=== PATIENT | female | born 1960 | race African-American/Black ===

== ENCOUNTER → 2018-10-05 | Day surgery (SDC) | payer BC ==
[~2018-10-05] MED LIST: HYDROmorphone 2 MG/ML VIAL IV PRN; IV RINGERS,LACTATED 1000ML 1,000 ML IV SCH; LIDOCAINE 1% PF 2 ML VIAL. ID PRN; LIDOCAINE 2% PF 5 ML VIAL. ONE; LOSA-73 PO; MORPHINE SULFATE 2 MG/ML VIAL. IV PRN; ONDANSETRON PF 4 MG/2 ML VIAL. IV PRN; PROCHLORPERAZINE 10 MG/2 ML VIAL. IV PRN; PROPOFOL 20 ML IV ONE; fentaNYL PF VIAL 100 MCG/2 ML VIAL IV PRN
[2018-10-05 08:42] VITALS: BP 117/74
--- NOTE | 2018-10-06 15:23 | HP ---
ADMIT DATE: 10/05/2018 UPDATED HISTORY AND PHYSICAL: REFERRING PHYSICIAN: Dr. Bety Mcdermott. REASON: History of colonic polyps. HISTORY OF PRESENT ILLNESS: This 57-year-old female with past medical history significant for anemia, osteoarthritis, hypertension, and colonic polyps, seen for surveillance exam. Last exam was 5 years ago, at which time tubular adenomas were encountered. Bowel habits are regular without diarrhea or constipation. There has been no melena or hematochezia. Weight and appetite are stable. She is otherwise without additional complaints. PAST MEDICAL HISTORY: Significant for hypertension, arthritis, history of colonic polyps. ALLERGIES: None. MEDICATIONS: Losartan 50 mg daily. SOCIAL HISTORY: She is a nondrinker, nonsmoker. FAMILY HISTORY: Significant for breast cancer with an aunt. Diabetes with both parents and sibling. Hypertension with both parents and several siblings and an HI with her father. PAST SURGICAL HISTORY: Significant for breast surgery. REVIEW OF SYSTEMS: As per records. PHYSICAL EXAMINATION: GENERAL: Well-nourished, well-developed female who is alert, cooperative, in no acute distress. VITAL SIGNS: Temperature is 97.8, pulse is 69, respiratory rate 16. HEENT: Normocephalic and atraumatic. Pupils and extraocular muscles are not tested. Sclerae anicteric. NECK: Supple. LUNGS: Clear. CARDIOVASCULAR: S1, S2 without S3, S4 or appreciable murmur. ABDOMEN: Soft abdomen, normal bowel sounds without appreciable hepatosplenomegaly. EXTREMITIES: Reveals no cyanosis, clubbing or edema. IMPRESSION: History of colonic polyps. Surveillance colonoscopy is recommended at this time. Risks and benefits of the procedure including risk of hemorrhage and perforation during the operation have been discussed with the patient who is willing to proceed at this time. I would like to thank Dr. Mcdermott for allowing us to consult and participate in this patient's care. JE HEATH MD DR: FAREED/kendrick JOB#: [id number] / [id number] Bety Morin MD
== END | disposition home or self-care (01) ==
LOC: SURG 07:26
PROVIDERS: ATTEND Internal Medicine Gastroenterology
DX: Z12.11 Encounter for screening for malignant neoplasm of colon (principal); K57.30 Diverticulosis of large intestine without perforation or abscess without bleeding; K64.0 First degree hemorrhoids; K63.89 Other specified diseases of intestine; I10 Essential (primary) hypertension; D64.9 Anemia, unspecified; M19.90 Unspecified osteoarthritis, unspecified site; Z86.010 Personal history of colon polyps; Z79.899 Other long term (current) drug therapy; Z83.3 Family history of diabetes mellitus; Z82.49 Family history of ischemic heart disease and other diseases of the circulatory system; Z98.890 Other specified postprocedural states
CPT/HCPCS: 45378; J2001; J2704

== ENCOUNTER → 2019-11-15 | Outpatient (CLI) | payer BC ==
[2018-10-05 08:42] VITALS: BP 117/74
[~2019-11-15] MED LIST changes: -HYDROmorphone 2 MG/ML VIAL IV PRN; -IV RINGERS,LACTATED 1000ML 1,000 ML IV SCH; -LIDOCAINE 1% PF 2 ML VIAL. ID PRN; -LIDOCAINE 2% PF 5 ML VIAL. ONE; -MORPHINE SULFATE 2 MG/ML VIAL. IV PRN; -ONDANSETRON PF 4 MG/2 ML VIAL. IV PRN; -PROCHLORPERAZINE 10 MG/2 ML VIAL. IV PRN; -PROPOFOL 20 ML IV ONE; -fentaNYL PF VIAL 100 MCG/2 ML VIAL IV PRN
--- NOTE | 2019-11-15 12:26 | RAD ---
KNEE LEFT 3V DATE: 11/15/2019 12:00 AM INDICATION: Knee pain COMPARISON: None. FINDINGS: Bones: There is no evidence of acute fracture or dislocation. Joints: Moderate to severe degenerative changes of the medial compartment. Mild degenerative changes of the lateral and patellofemoral compartment. There is no joint effusion. Miscellaneous: None. IMPRESSION: Tricompartmental osteoarthritis, worst and moderate to severe in the medial compartment. Degenerative changes are similar to the prior exam. Electronically signed by: Henok Casey MD (11/15/2019 12:23 PM) [id number]
--- NOTE | 2019-11-15 12:26 | RAD ---
HIP RIGHT 2 VIEW DATE: 11/15/2019 12:00 AM INDICATION: Hip pain COMPARISON: None. FINDINGS: Bones: There is no evidence of acute fracture or dislocation. Joints: Moderate to severe degenerative changes of the hip with subchondral sclerosis and osteophyte formation Miscellaneous: Pelvic phleboliths IMPRESSION: Moderate to severe degenerative changes of the right hip. Degenerative changes are similar to the prior exam. Electronically signed by: Henok Casey MD (11/15/2019 12:24 PM) [id number]
== END | disposition home or self-care (01) ==
LOC: RAD 11:27
PROVIDERS: ATTEND Family Medicine
DX: M17.12 Unilateral primary osteoarthritis, left knee (principal); M16.11 Unilateral primary osteoarthritis, right hip; M25.751 Osteophyte, right hip; I87.8 Other specified disorders of veins
CPT/HCPCS: 73502; 73562

== ENCOUNTER → 2020-01-14 | Outpatient (CLI) | payer BC ==
[2018-10-05 08:42] VITALS: BP 117/74
[~2020-01-14] MED LIST changes: +ALBU2.5V8 IH; +BUPIVACAINE MPF 0.5% 10 ML VIAL for KCIC. IM ONE; +CONTRAST GIVEN. MC PRN; +FLUT1DIS IH; +IOHEXOL 300 MG/ML 50 ML VIAL. INT ART ONE; +LIDOCAINE 1% Multi-Dose 20 ML VIAL. ID ONE; +SPIR25TA5 PO; +methylPREDNISolone ACETATE 40 MG/ML VIAL. INT ART ONE
--- NOTE | 2020-01-14 16:31 | KCIC ---
EXAM: FLUOROSCPY-GUIDED HIP ARTHROGRAM History: Right hip pain, arthritis COMPARISON: None available TECHNIQUE: Consent: A written, informed consent was obtained from the patient prior to the procedure. Appropriate time out procedures were performed. The skin was prepped and draped in the usual fashion under aseptic precautions. Dilute 1% lidocaine was used for local anesthesia. Under fluoroscopic guidance a 22 gauge long spinal needle was used to access the hip joint. A mixture of 4 mL of Omnipaque 300, 4 mL of bupivacaine, 4 mL of lidocaine, 80 mg Depo-Medrol. The patient was transferred to the MRI suite. 28 seconds of total fluoroscopy time was utilized. No immediate complications. IMPRESSION: Technically successful right hip arthrogram. Electronically signed by: Red Hardwick MD (01/14/2020 4:28 PM) [id number]
== END | disposition home or self-care (01) ==
LOC: KCIC 14:23
PROVIDERS: ATTEND Orthopaedic Surgery Sports Medicine
DX: M13.851 Other specified arthritis, right hip (principal); Z79.899 Other long term (current) drug therapy
CPT/HCPCS: 20610; 77002; J1030; J3490; Q9967

== ENCOUNTER 2020-01-21 06:52 | Observation (INO) | payer BC ==
[2020-01-21] VITALS (10 sets, daily range): BP systolic 83–108; BP diastolic 44–60
[~2020-01-21] VITALS: Ht 160 cm; Wt 75.1 kg
[~2020-01-21 06:52] MED LIST changes: -BUPIVACAINE MPF 0.5% 10 ML VIAL for KCIC. IM ONE; -CONTRAST GIVEN. MC PRN; -IOHEXOL 300 MG/ML 50 ML VIAL. INT ART ONE; -LIDOCAINE 1% Multi-Dose 20 ML VIAL. ID ONE; -methylPREDNISolone ACETATE 40 MG/ML VIAL. INT ART ONE
[2020-01-21] MEDS ORDERED: IV NORMAL SALINE 1000ML BAG 1,000 ML IV SCH ×2 (06:59→09:45)
[2020-01-21] MEDS ORDERED: ONDANSETRON PF 4 MG/2 ML VIAL. IVP ONE (07:00)
--- NOTE | 2020-01-21 07:01 | PHYS DOC ---
Past Medical History Past Medical History: Hypertension Drug Use: None General Adult EDM: Chief Complaint: ABDOMINAL PAIN HPI: HPI: Patient is a 59 year old female who presents with a chief complaint of abdominal cramping and nausea and vomiting. Symptoms have been going on for 2 days. Patient states she is having some epigastric pain that radiates to the lower abdomen is described as cramping moderate in nature and worse with palpation. Patient has not had a bowel movement a couple days. Denies diarrhea. She has had about 6 episodes of emesis. Patient denies any fevers chills or cough. Patient had a hip injection 1 week ago and her joint pain is improved. Review of Systems: Review of Systems: Constitutional: Denies fever or chills. [] Eyes: Denies change in visual acuity. [] HENT: Denies nasal congestion or sore throat. [] Respiratory: Denies cough or shortness of breath. [] Cardiovascular: Denies chest pain or edema. [] GI: complains of abd pain, nausea and vomiting, denies diarrhea : Denies dysuria. [] Musculoskeletal: Denies back pain or joint pain. [] Integument: Denies rash. [] Neurologic: Denies headache, focal weakness or sensory changes. [] Endocrine: Denies polyuria or polydipsia. [] Lymphatic: Denies swollen glands. [] Psychiatric: Denies depression or anxiety. [] Heart Score: Risk Factors: Risk Factors: DM, Current or recent (<one month) smoker, HTN, HLP, family history of CAD, obesity. Risk Scores: Score 0 - 3: 2.5% MACE over next 6 weeks - Discharge Home Score 4 - 6: 20.3% MACE over next 6 weeks - Admit for Clinical Observation Score 7 - 10: 72.7% MACE over next 6 weeks - Early Invasive Strategies Allergies: Allergies: Allergies Coded Allergies Type Severity Reaction Last Updated Verified No Known Drug Allergies 10/05/18 No Physical Exam: PE: Constitutional: Well developed, well nourished, no acute distress, non-toxic appearance. [] HENT: Normocephalic, atraumatic, bilateral external ears normal, no trismus nose normal. [] Eyes: PERRLA, EOMI, conjunctiva normal, no discharge. [] Neck: Normal range of motion, no tenderness, supple, no stridor. [] Cardiovascular:Heart rate regular rhythm, no murmur [] Lungs & Thorax: No respiratory distress Abdomen: , Soft with diffuse tenderness to palpation worse in the epigastric. No pulsatile masses Skin: Warm, dry, no erythema, no rash. [] Back: No tenderness, no CVA tenderness. [] Extremities: No tenderness, no cyanosis, no clubbing, ROM intact, no edema. [] Neurologic: Alert and oriented X 3, normal motor function, normal sensory function, no focal deficits noted. [] Psychologic: Affect normal, judgement normal, mood normal. [] Current Patient Data: Labs: Laboratory Tests Test 01/21/20 07:07 01/21/20 07:25 01/21/20 07:57 Urine Collection Type Unknown Urine Color Yellow Urine Clarity Clear Urine pH 7.0 Urine Specific [place] 1.020 Urine Protein 30 mg/dL Urine Glucose (UA) Negative mg/dL Urine Ketones (Stick) 15 mg/dL Urine Blood Negative Urine Nitrite Negative Urine Bilirubin Small Urine Urobilinogen Dipstick 1.0 mg/dL Urine Leukocyte Esterase Moderate Urine RBC 0 /HPF Urine WBC 5-10 /HPF Urine Squamous Epithelial Cells Occ /LPF Urine Amorphous Sediment Present /HPF Urine Bacteria Few /HPF Urine Hyaline Casts Occasional /HPF Urine Mucus Marked /LPF White Blood Count 19.7 x10^3/uL Red Blood Count 4.64 x10^6/uL Hemoglobin 12.8 g/dL Hematocrit 38.3 % Mean Corpuscular Volume 83 fL Mean Corpuscular Hemoglobin 28 pg Mean Corpuscular Hemoglobin Concent 34 g/dL Red Cell Distribution Width 13.6 % Platelet Count 281 x10^3/uL Neutrophils (%) (Auto) 90 % Lymphocytes (%) (Auto) 7 % Monocytes (%) (Auto) 2 % Eosinophils (%) (Auto) 0 % Basophils (%) (Auto) 1 % Neutrophils # (Auto) 17.7 x10^3/uL Lymphocytes # (Auto) 1.4 x10^3/uL Monocytes # (Auto) 0.5 x10^3/uL Eosinophils # (Auto) 0.0 x10^3/uL Basophils # (Auto) 0.1 x10^3/uL Segmented Neutrophils % 94 % Lymphocytes % 4 % Monocytes % 2 % Platelet Estimate Adequate Sodium Level 130 mmol/L Potassium Level 4.3 mmol/L Chloride Level 98 mmol/L Carbon Dioxide Level 24 mmol/L Anion Gap 8 Blood Urea Nitrogen 25 mg/dL Creatinine 1.4 mg/dL Estimated GFR (Cockcroft-Gault) 46.7 BUN/Creatinine Ratio 18 Glucose Level 120 mg/dL Calcium Level 9.3 mg/dL Total Bilirubin 0.5 mg/dL Aspartate Amino Transf (AST/SGOT) 12 U/L Alanine Aminotransferase (ALT/SGPT) 21 U/L Alkaline Phosphatase 82 U/L Total Protein 7.6 g/dL Albumin 3.4 g/dL Albumin/Globulin Ratio 0.8 Lipase 66 U/L Current Medications Medications (Trade) Dose Ordered Sig/Juan Route PRN Reason Start Time Stop Time Status Last Admin Dose Admin Sodium Chloride 1,000 ml @ 1,000 mls/hr Q1H IV 01/21/20 06:59 01/21/20 07:58 DC 01/21/20 07:41 Ondansetron HCl (Zofran) 4 mg 1X ONCE IVP 01/21/20 07:00 01/21/20 07:02 DC 01/21/20 07:42 Dicyclomine HCl (Bentyl) 20 mg 1X ONCE IM 01/21/20 07:15 01/21/20 07:17 DC 01/21/20 07:45 Iohexol (Omnipaque 300 Mg/ml) 75 ml 1X ONCE IV 01/21/20 07:45 01/21/20 07:46 DC 01/21/20 07:45 Info (CONTRAST GIVEN -- Rx MONITORING) 1 each PRN DAILY PRN MC SEE COMMENTS 01/21/20 07:45 01/23/20 07:44 Piperacillin Sod/ Tazobactam Sod 3.375 gm/Sodium Chloride 50 ml @ 100 mls/hr 1X ONCE IV 01/21/20 09:30 01/21/20 09:59 Vital Signs: Vital Signs Date Time Temp Pulse Resp B/P (MAP) Pulse Ox O2 Delivery O2 Flow Rate FiO2 01/21/20 07:10 98.7 80 18 117/65 (82) 98 Room Air 98.7 EKG: EKG: [] Radiology/Procedures: Radiology/Procedures: [][facility] [address] [place] [address] IMAGING REPORT Signed PATIENT: KULDEEP VEGA ACCOUNT: [id number] : 1960 LOCATION: ER AGE: 59 SEX: F EXAM STATUS: REG ER ORD. PHYSICIAN: JE PHILLIPS MD REASON: abd pain, n/v PROCEDURE: CT ABD PELV W/ IV CONTRST ONLY CT ABD PELV W/ IV CONTRST ONLY History: abd pain, n/v Comparison: None. Technique: After administration of intravenous contrast, helical CT of the abdomen and pelvis was performed from the lung bases through the ischial tuberosities. Coronal and sagittal reconstructions were obtained. 60 mL of Omnipaque 300 were used. One or more of the following dose reduction techniques were utilized: Automated exposure control (AEC), Adjustment of mA and/or kV according to patient size, Use of iterative reconstruction technique such as ASiR, CT scan done according to ALARA and image gently/image wisely Abdomen Findings: The visualized lung bases are clear. The liver, gallbladder, pancreas, and bilateral adrenal glands are normal. Indeterminate splenic hypodensity measuring 1 cm, probably a cyst or hemangioma. Symmetric renal enhancement. There is no focal renal mass. There is no hydronephrosis. The visualized loops of small bowel are normal. Mild colonic diverticulosis There is no evidence of bowel obstruction. Enlarged appendix measuring 1.1 cm with periappendiceal inflammation. No free air or organized fluid collection. There is no free fluid. There is no mesenteric or retroperitoneal adenopathy. The abdominal aorta is normal in caliber. Pelvis Findings: Urinary bladder is partially distended. Myomatous uterus. No pelvic free fluid. There is no pelvic or inguinal adenopathy. Degenerative changes of the spine. IMPRESSION: 1. Enlarged appendix with periappendiceal inflammation concerning for acute appendicitis. No free air or organized fluid collection. 2. Myomatous uterus. Electronically signed by: Michelle Casey MD (01/21/2020 9:16 AM) [id number] DICTATED and SIGNED BY: MICHELLE CASEY MD DATE: 01/21/20 0916 Course & Med Decision Making: Course & Med Decision Making Pertinent Labs and Imaging studies reviewed. (See chart for details) [] 59-year-old female presents with abdominal pain. Patient started generalized and epigastric area now more in the lower abdomen. CT shows acute appendicitis. Patient given IV antibiotics and will be admitted to the hospitalist. General surgery will be consulted. Patient admitted to with a consult placed with Dr. Marquis Campbell Disclaimer: Adrian Disclaimer: This electronic medical record was generated, in whole or in part, using a voice recognition dictation system. Departure Departure Impression: Primary Impression: Acute appendicitis Additional Impression: Acute abdominal pain Disposition: ADMITTED INPATIENT Admitting Physician: RUDY Toribio) Condition: STABLE Referrals: GENEVA KELLEY MD (PCP) Justicifation of Admission Dx: Justifications for Admission: Justification of Admission Dx: Yes JE PHILLIPS MD Jan 21, 2020 07:01
[2020-01-21] MEDS ORDERED: DICYCLOMINE 20 MG/2 ML VIAL. IM ONE (07:15)
[2020-01-21 07:16] LABS: BILIRUBIN,URINE SMALL (NEG); CLARITY,URINE CLEAR; COLOR,URINE YELLOW; NITRITE,URINE NEGATIVE (NEG); PROTEIN,URINE 30 mg/dL (NEG-TRACE)
[2020-01-21 07:30] LABS: RBC,URINE 0 /HPF (0-2)
[2020-01-21 07:31] LABS: AMORPHOUS SEDIMENT,UR PRESENT /HPF; BACTERIA,URINE FEW /HPF (0-FEW); HYALINE CASTS, URINE OCCASIONAL /HPF; SQUAMOUS EPITHELIAL CELL,UR OCC /LPF
[2020-01-21 07:35] LABS: BASO # 0.1 x10^3/uL (0.0-0.2); BASO % 1 % (0-3); EOS % 0 % (0-3); HEMATOCRIT 38.3 % (36.0-47.0); HEMOGLOBIN 12.8 g/dL (12.0-15.5); LYMPH # 1.4 x10^3/uL (1.0-4.8); LYMPH % 7 % (24-48); MEAN CORPUSCULAR HEMOGLOBIN 28 pg (25-35); MEAN CORPUSCULAR HGB CONC 34 g/dL (31-37); MEAN CORPUSCULAR VOLUME 83 fL (79-100); MONO # 0.5 x10^3/uL (0.0-1.1); MONO % 2 % (0-9); NEUT # 17.7 x10^3/uL (1.8-7.7); NEUT % 90 % (31-73); PLATELET COUNT 281 x10^3/uL (140-400); RED BLOOD COUNT 4.64 x10^6/uL (3.50-5.40); RED CELL DISTRIBUTION WIDTH 13.6 % (11.5-14.5); WHITE BLOOD COUNT 19.7 x10^3/uL (4.0-11.0)
[2020-01-21] MEDS ORDERED: IOHEXOL 300 MG/ML 100ML VIAL. IV ONE (07:45)
[2020-01-21] MEDS ORDERED: CONTRAST GIVEN. MC PRN (07:45)
[2020-01-21 08:09] LABS: CALCIUM 9.3 mg/dL (8.5-10.1); CREATININE 1.4 mg/dL (0.6-1.0); GFR 46.7; POTASSIUM 4.3 mmol/L (3.5-5.1)
[2020-01-21 08:15] LABS: ALBUMIN 3.4 g/dL (3.4-5.0); ALBUMIN/GLOBULIN RATIO 0.8 (1.0-1.7); TOTAL BILIRUBIN 0.5 mg/dL (0.2-1.0); TOTAL PROTEIN 7.6 g/dL (6.4-8.2)
[2020-01-21 08:20] LABS: % LYMPHS 4 % (24-48); % MONOS 2 % (0-10); % SEGS 94 % (35-66)
[2020-01-21 08:21] LABS: PLT ESTIMATE ADEQUATE (ADEQUATE)
--- NOTE | 2020-01-21 09:19 | RAD ---
CT ABD PELV W/ IV CONTRST ONLY History: abd pain, n/v Comparison: None. Technique: After administration of intravenous contrast, helical CT of the abdomen and pelvis was performed from the lung bases through the ischial tuberosities. Coronal and sagittal reconstructions were obtained. 60 mL of Omnipaque 300 were used. One or more of the following dose reduction techniques were utilized: Automated exposure control (AEC), Adjustment of mA and/or kV according to patient size, Use of iterative reconstruction technique such as ASiR, CT scan done according to ALARA and image gently/image wisely Abdomen Findings: The visualized lung bases are clear. The liver, gallbladder, pancreas, and bilateral adrenal glands are normal. Indeterminate splenic hypodensity measuring 1 cm, probably a cyst or hemangioma. Symmetric renal enhancement. There is no focal renal mass. There is no hydronephrosis. The visualized loops of small bowel are normal. Mild colonic diverticulosis There is no evidence of bowel obstruction. Enlarged appendix measuring 1.1 cm with periappendiceal inflammation. No free air or organized fluid collection. There is no free fluid. There is no mesenteric or retroperitoneal adenopathy. The abdominal aorta is normal in caliber. Pelvis Findings: Urinary bladder is partially distended. Myomatous uterus. No pelvic free fluid. There is no pelvic or inguinal adenopathy. Degenerative changes of the spine. IMPRESSION: 1. Enlarged appendix with periappendiceal inflammation concerning for acute appendicitis. No free air or organized fluid collection. 2. Myomatous uterus. Electronically signed by: Henok Casey MD (01/21/2020 9:16 AM) [id number]
[2020-01-21] MEDS ORDERED: PIPERACILLIN/TAZOBACTAM 3.375 GM in IV NORMAL SALINE 50ML 50 ML IV ONE (09:30)
[2020-01-21] MEDS ORDERED: ONDANSETRON PF 4 MG/2 ML VIAL. IV PRN ×2 (09:45→10:00)
[2020-01-21] MEDS ORDERED: MORPHINE SULFATE 2 MG/ML VIAL. IV PRN ×2 (09:45→12:45)
[2020-01-21] MEDS: IV NORMAL SALINE 1000ML BAG 1,000 ML IV SCH ×3 (09:53→14:45)
[2020-01-21] MEDS ORDERED: ACETAMINOPHEN 325 MG TABLET. PO PRN (10:00)
[2020-01-21] MEDS ORDERED: diphenhydrAMINE 50 MG/ML VIAL IVP PRN (10:00)
[2020-01-21] MEDS ORDERED: ALBUTEROL SULFATE 2.5 MG/3 ML NEBU. NEB PRN (10:00)
[2020-01-21] MEDS ORDERED: ACETAMINOPHEN 650 MG SUPP.RECT. PR PRN (10:00)
[2020-01-21] MEDS ORDERED: DOCUSATE SODIUM 100 MG CAPSULE. PO PRN (10:00)
[2020-01-21] MEDS ORDERED: LORazepam 0.5 MG TABLET PO PRN (10:00)
[2020-01-21] MEDS ORDERED: ZOLPIDEM 5 MG TABLET. PO PRN (10:00)
[2020-01-21] MEDS ORDERED: guaiFENesin ORAL 200 MG/10 ML LIQUID. PO PRN (10:00)
[2020-01-21] MEDS: SPIRONOLACTONE 25 MG TABLET PO SCH (10:57)
[2020-01-21] MEDS: LOSARTAN POTASSIUM 50 MG TABLET. PO SCH (10:57)
[2020-01-21] MEDS: ALBUTEROL SULFATE 2.5 MG/3 ML NEBU. NEB SCH ×2 (11:11→19:55)
[2020-01-21] MEDS ORDERED: BUPIVACAINE-EPI 0.25%-1:200000 MPF 30 ML VIAL. ONE (12:32)
[2020-01-21] MEDS ORDERED: IV RINGERS,LACTATED 1000ML 1,000 ML IV SCH (12:39)
[2020-01-21] MEDS ORDERED: PROPOFOL 10 MG/ML (20ML) VIAL. IV ONE (12:43)
[2020-01-21] MEDS ORDERED: DEXAMETHASONE SOD PHOS 4 MG/ML VIAL ONE ×2 (12:43→13:22)
[2020-01-21] MEDS ORDERED: LIDOCAINE 2% PF 5 ML VIAL. ONE (12:43)
[2020-01-21] MEDS ORDERED: SUCCINYLCHOLINE 200 MG/10 ML VIAL. ONE (12:44)
[2020-01-21] MEDS ORDERED: ROCURONIUM 50 MG/5 ML VIAL. ONE (12:44)
[2020-01-21] MEDS ORDERED: fentaNYL PF VIAL 100 MCG/2 ML VIAL IV PRN (12:45)
[2020-01-21] MEDS ORDERED: HYDROmorphone 2 MG/ML VIAL IV PRN (12:45)
[2020-01-21] MEDS ORDERED: PROCHLORPERAZINE 10 MG/2 ML VIAL. IV PRN (12:45)
--- NOTE | 2020-01-21 12:57 | PDOC2 ---
CONSULT Date of Consult Date of Consult DATE: 01/21/20 TIME: 12:54 Reason for Consult Reason for Consult: Nausea vomiting abdominal pain Referring Physician Referring Physician: Isabel Identification/Chief Complaint Chief Complaint Nausea vomit abdominal pain Source Source: Chart review, Patient History of Present Illness Reason for Visit: 59-year-old female with 2-day history of right lower quadrant abdominal pain nausea vomiting. Came to the emergency room for further evaluation found to have elevated white count and a CT scan showing signs consistent with acute appendicitis with dilated appendix and periappendiceal inflammation no evidence of abscess Past Medical History Cardiovascular: HTN Pulmonary: No pertinent hx GI: No pertinent hx Heme/Onc: No pertinent hx Hepatobiliary: No pertinent hx Psych: No pertinent hx Rheumatologic: No pertinent hx Infectious disease: No pertinent hx ENT: No pertinent hx Renal/: No pertinent hx Endocrine: No pertinent hx Dermatology: No pertinent hx Past Surgical History Past Surgical History: No pertinent history Current Problem List Problem List Problems Medical Problems: (1) Acute abdominal pain Status: Acute (2) Acute appendicitis Status: Acute (3) Generalized abdominal pain affecting Status: Acute Current Medications Current Medications Current Medications Sodium Chloride 1,000 ml @ 1,000 mls/hr Q1H IV Last administered on 01/21/20at 07:41; Start 01/21/20 at 06:59; Stop 01/21/20 at 07:58; Status DC Ondansetron HCl (Zofran) 4 mg 1X ONCE IVP Last administered on 01/21/20at 07:42; Start 01/21/20 at 07:00; Stop 01/21/20 at 07:02; Status DC Dicyclomine HCl (Bentyl) 20 mg 1X ONCE IM Last administered on 01/21/20at 07:45; Start 01/21/20 at 07:15; Stop 01/21/20 at 07:17; Status DC Iohexol (Omnipaque 300 Mg/ml) 75 ml 1X ONCE IV Last administered on 01/21/20at 07:45; Start 01/21/20 at 07:45; Stop 01/21/20 at 07:46; Status DC Info (CONTRAST GIVEN -- Rx MONITORING) 1 each PRN DAILY PRN MC SEE COMMENTS; Start 01/21/20 at 07:45; Stop 01/23/20 at 07:44 Piperacillin Sod/ Tazobactam Sod 3.375 gm/Sodium Chloride 50 ml @ 100 mls/hr 1X ONCE IV Last administered on 01/21/20at 10:05; Start 01/21/20 at 09:30; Stop 01/21/20 at 09:59; Status DC Ondansetron HCl (Zofran) 4 mg PRN Q8HRS PRN IV NAUSEA/VOMITING; Start 01/21/20 at 09:45; Stop 01/22/20 at 09:44 Morphine Sulfate (Morphine Sulfate) 2 mg PRN Q2HR PRN IV PAIN Last administered on 01/21/20at 10:01; Start 01/21/20 at 09:45; Stop 01/22/20 at 09:44 Sodium Chloride 1,000 ml @ 125 mls/hr Q8H IV Last administered on 01/21/20at 10:00; Start 01/21/20 at 09:45; Stop 01/21/20 at 10:27; Status DC Sodium Chloride 1,000 ml @ 100 mls/hr Q10H IV Last administered on 01/21/20at 11:06; Start 01/21/20 at 09:53 Ondansetron HCl (Zofran) 4 mg PRN Q4HRS PRN IV NAUSEA/VOMITING; Start 01/21/20 at 10:00 Zolpidem Tartrate (Ambien) 5 mg PRN QHS PRN PO INSOMNIA; Start 01/21/20 at 10:00 Acetaminophen (Tylenol) 650 mg PRN Q4HRS PRN PO TEMP OVER 100.4F OR MILD PAIN; Start 01/21/20 at 10:00 Acetaminophen (Tylenol Supp) 650 mg PRN Q4HRS PRN IN TEMP OVER 100.4F OR MILD PAIN; Start 01/21/20 at 10:00 Diphenhydramine HCl (Benadryl) 25 mg PRN Q4HRS PRN IVP ITCHING; Start 01/21/20 at 10:00 Docusate Sodium (Colace) 100 mg PRN BID PRN PO HARD STOOLS; Start 01/21/20 at 10:00 Albuterol Sulfate (Ventolin Neb Soln) 2.5 mg PRN Q4HRS PRN NEB SHORTNESS OF BREATH; Start 01/21/20 at 10:00 Guaifenesin (Robitussin) 200 mg PRN Q4HRS PRN PO COUGH; Start 01/21/20 at 10:00 Lorazepam (Ativan) 0.5 mg PRN Q4HRS PRN PO ANXIETY / AGITATION; Start 01/21/20 at 10:00 Losartan Potassium (Cozaar) 50 mg DAILY PO ; Start 01/21/20 at 11:00 Spironolactone (Aldactone) 25 mg DAILY PO ; Start 01/21/20 at 11:00 Non-Formulary Medication (Fluticasone/ Salmeterol (Advair 100-50 Diskus)) 1 puff BID IH ; Start 01/21/20 at 21:00; Status UNV Albuterol Sulfate (Ventolin Neb Soln) 2.5 mg Q6HRS NEB Last administered on 01/21/20at 11:11; Start 01/21/20 at 12:00 Budesonide (Pulmicort) 0.5 mg RTBID NEB ; Start 01/21/20 at 20:00 Bupivacaine HCl/ Epinephrine Bitart (Sensorcaine-Epi 0.25%-1:717238 Mpf) 30 ml STK-MED ONCE .ROUTE ; Start 01/21/20 at 12:32; Stop 01/21/20 at 12:33; Status DC Fentanyl Citrate (Fentanyl 2ml Vial) 50 mcg PRN Q5MIN PRN IV MODERATE TO SEVERE PAIN; Start 01/21/20 at 12:45; Stop 01/21/20 at 20:00 Morphine Sulfate (Morphine Sulfate) 1 mg PRN Q10MIN PRN IV SEVERE PAIN 7-10; Start 01/21/20 at 12:45; Stop 01/21/20 at 20:00 Ringer's Solution 1,000 ml @ 30 mls/hr Q24H IV ; Start 01/21/20 at 12:39; Stop 01/22/20 at 00:38 Hydromorphone HCl (Dilaudid) 0.5 mg PRN Q10MIN PRN IV SEV PAIN, Second choice; Start 01/21/20 at 12:45; Stop 01/22/20 at 12:44; Status UNV Prochlorperazine Edisylate (Compazine) 5 mg PACU PRN PRN IV NAUSEA, MRX1; Start 01/21/20 at 12:45; Stop 7/29/20 at 12:44; Status UNV Propofol (Diprivan) 200 mg STK-MED ONCE IV ; Start 01/21/20 at 12:43; Stop 01/21/20 at 12:43; Status DC Lidocaine HCl (Lidocaine Pf 2% Vial) 5 ml STK-MED ONCE .ROUTE ; Start 01/21/20 at 12:43; Stop 01/21/20 at 12:44; Status DC Dexamethasone Sodium Phosphate (Decadron) 4 mg STK-MED ONCE .ROUTE ; Start 01/21/20 at 12:43; Stop 01/21/20 at 12:44; Status DC Rocuronium [place] (Zemuron) 50 mg STK-MED ONCE .ROUTE ; Start 01/21/20 at 12:44; Stop 01/21/20 at 12:44; Status DC Succinylcholine Chloride (Anectine) 200 mg STK-MED ONCE .ROUTE ; Start 01/21/20 at 12:44; Stop 01/21/20 at 12:44; Status DC Active Scripts Active Reported Advair 100-50 Diskus (Fluticasone/Salmeterol) 1 Each Disk.w.dev 1 Puff IH BID Spironolactone 25 Mg Tablet 1 Tab PO DAILY Proair Hfa Inhaler (Albuterol Sulfate) 8.5 Gm Hfa.aer.ad 2 Puff IH PRN Q4-6HRS PRN 21 Days Losartan Potassium 50 Mg Tablet 50 Mg PO DAILY Allergies Allergies: Coded Allergies: lisinopril (Verified Allergy, Severe, Swelling, 01/21/20) ROS Gastrointestinal: Yes Nausea, Yes Vomiting, Yes Abdominal Pain Physical Exam General: Alert, Oriented X3, Cooperative, mild distress HEENT: Atraumatic Lungs: Clear to auscultation, Normal air movement Heart: Regular rate, No murmurs Abdomen: Normal bowel sounds, Soft, Other (Tender to palpation right lower quadrant) Extremities: No edema Skin: No significant lesion Neuro: Normal speech Psych/Mental Status: Mental status NL Vitals VITALS Vital Signs Date Time Temp Pulse Resp B/P (MAP) Pulse Ox O2 Delivery O2 Flow Rate FiO2 01/21/20 11:13 98 Room Air 01/21/20 10:39 92 118/64 (82) 01/21/20 07:10 98.7 18 98.7 Labs Labs Laboratory Tests Test 01/21/20 07:07 01/21/20 07:25 01/21/20 07:57 01/21/20 10:12 Urine Collection Type Unknown Urine Color Yellow Urine Clarity Clear Urine pH 7.0 (<5.0-8.0) Urine Specific [place] 1.020 (1.000-1.030) Urine Protein 30 mg/dL (NEG-TRACE) Urine Glucose (UA) Negative mg/dL (NEG) Urine Ketones (Stick) 15 mg/dL (NEG) Urine Blood Negative (NEG) Urine Nitrite Negative (NEG) Urine Bilirubin Small (NEG) Urine Urobilinogen Dipstick 1.0 mg/dL (0.2 mg/dL) Urine Leukocyte Esterase Moderate (NEG) Urine RBC 0 /HPF (0-2) Urine WBC 5-10 /HPF (0-4) Urine Squamous Epithelial Cells Occ /LPF Urine Amorphous Sediment Present /HPF Urine Bacteria Few /HPF (0-FEW) Urine Hyaline Casts Occasional /HPF Urine Mucus Marked /LPF White Blood Count 19.7 x10^3/uL (4.0-11.0) Red Blood Count 4.64 x10^6/uL (3.50-5.40) Hemoglobin 12.8 g/dL (12.0-15.5) Hematocrit 38.3 % (36.0-47.0) Mean Corpuscular Volume 83 fL (79-100) Mean Corpuscular Hemoglobin 28 pg (25-35) Mean Corpuscular Hemoglobin Concent 34 g/dL (31-37) Red Cell Distribution Width 13.6 % (11.5-14.5) Platelet Count 281 x10^3/uL (140-400) Neutrophils (%) (Auto) 90 % (31-73) Lymphocytes (%) (Auto) 7 % (24-48) Monocytes (%) (Auto) 2 % (0-9) Eosinophils (%) (Auto) 0 % (0-3) Basophils (%) (Auto) 1 % (0-3) Neutrophils # (Auto) 17.7 x10^3/uL (1.8-7.7) Lymphocytes # (Auto) 1.4 x10^3/uL (1.0-4.8) Monocytes # (Auto) 0.5 x10^3/uL (0.0-1.1) Eosinophils # (Auto) 0.0 x10^3/uL (0.0-0.7) Basophils # (Auto) 0.1 x10^3/uL (0.0-0.2) Segmented Neutrophils % 94 % (35-66) Lymphocytes % 4 % (24-48) Monocytes % 2 % (0-10) Platelet Estimate Adequate (ADEQUATE) Sodium Level 130 mmol/L (136-145) Potassium Level 4.3 mmol/L (3.5-5.1) Chloride Level 98 mmol/L (98-107) Carbon Dioxide Level 24 mmol/L (21-32) Anion Gap 8 (6-14) Blood Urea Nitrogen 25 mg/dL (7-20) Creatinine 1.4 mg/dL (0.6-1.0) Estimated GFR (Cockcroft-Gault) 46.7 BUN/Creatinine Ratio 18 (6-20) Glucose Level 120 mg/dL (70-99) Calcium Level 9.3 mg/dL (8.5-10.1) Total Bilirubin 0.5 mg/dL (0.2-1.0) Aspartate Amino Transf (AST/SGOT) 12 U/L (15-37) Alanine Aminotransferase (ALT/SGPT) 21 U/L (14-59) Alkaline Phosphatase 82 U/L (46-116) Total Protein 7.6 g/dL (6.4-8.2) Albumin 3.4 g/dL (3.4-5.0) Albumin/Globulin Ratio 0.8 (1.0-1.7) Lipase 66 U/L (73-393) SARS-CoV-2 Antigen (Rapid) Negative (NEGATIVE) Laboratory Tests Test 01/21/20 07:07 01/21/20 07:25 01/21/20 07:57 01/21/20 10:12 Urine Collection Type Unknown Urine Color Yellow Urine Clarity Clear Urine pH 7.0 (<5.0-8.0) Urine Specific [place] 1.020 (1.000-1.030) Urine Protein 30 mg/dL (NEG-TRACE) Urine Glucose (UA) Negative mg/dL (NEG) Urine Ketones (Stick) 15 mg/dL (NEG) Urine Blood Negative (NEG) Urine Nitrite Negative (NEG) Urine Bilirubin Small (NEG) Urine Urobilinogen Dipstick 1.0 mg/dL (0.2 mg/dL) Urine Leukocyte Esterase Moderate (NEG) Urine RBC 0 /HPF (0-2) Urine WBC 5-10 /HPF (0-4) Urine Squamous Epithelial Cells Occ /LPF Urine Amorphous Sediment Present /HPF Urine Bacteria Few /HPF (0-FEW) Urine Hyaline Casts Occasional /HPF Urine Mucus Marked /LPF White Blood Count 19.7 x10^3/uL (4.0-11.0) Red Blood Count 4.64 x10^6/uL (3.50-5.40) Hemoglobin 12.8 g/dL (12.0-15.5) Hematocrit 38.3 % (36.0-47.0) Mean Corpuscular Volume 83 fL (79-100) Mean Corpuscular Hemoglobin 28 pg (25-35) Mean Corpuscular Hemoglobin Concent 34 g/dL (31-37) Red Cell Distribution Width 13.6 % (11.5-14.5) Platelet Count 281 x10^3/uL (140-400) Neutrophils (%) (Auto) 90 % (31-73) Lymphocytes (%) (Auto) 7 % (24-48) Monocytes (%) (Auto) 2 % (0-9) Eosinophils (%) (Auto) 0 % (0-3) Basophils (%) (Auto) 1 % (0-3) Neutrophils # (Auto) 17.7 x10^3/uL (1.8-7.7) Lymphocytes # (Auto) 1.4 x10^3/uL (1.0-4.8) Monocytes # (Auto) 0.5 x10^3/uL (0.0-1.1) Eosinophils # (Auto) 0.0 x10^3/uL (0.0-0.7) Basophils # (Auto) 0.1 x10^3/uL (0.0-0.2) Segmented Neutrophils % 94 % (35-66) Lymphocytes % 4 % (24-48) Monocytes % 2 % (0-10) Platelet Estimate Adequate (ADEQUATE) Sodium Level 130 mmol/L (136-145) Potassium Level 4.3 mmol/L (3.5-5.1) Chloride Level 98 mmol/L (98-107) Carbon Dioxide Level 24 mmol/L (21-32) Anion Gap 8 (6-14) Blood Urea Nitrogen 25 mg/dL (7-20) Creatinine 1.4 mg/dL (0.6-1.0) Estimated GFR (Cockcroft-Gault) 46.7 BUN/Creatinine Ratio 18 (6-20) Glucose Level 120 mg/dL (70-99) Calcium Level 9.3 mg/dL (8.5-10.1) Total Bilirubin 0.5 mg/dL (0.2-1.0) Aspartate Amino Transf (AST/SGOT) 12 U/L (15-37) Alanine Aminotransferase (ALT/SGPT) 21 U/L (14-59) Alkaline Phosphatase 82 U/L (46-116) Total Protein 7.6 g/dL (6.4-8.2) Albumin 3.4 g/dL (3.4-5.0) Albumin/Globulin Ratio 0.8 (1.0-1.7) Lipase 66 U/L (73-393) SARS-CoV-2 Antigen (Rapid) Negative (NEGATIVE) Assessment/Plan Assessment/Plan Acute appendicitis plan laparoscopic appendectomy ANDREW POTTS MD Jan 21, 2020 12:57
[2020-01-21] MEDS ORDERED: fentaNYL PF VIAL 100 MCG/2 ML VIAL ONE (13:43)
[2020-01-21] MEDS ORDERED: NEOSTIGMINE 10 MG/10 ML VIAL. ONE (13:44)
[2020-01-21] MEDS ORDERED: GLYCOPYRROLATE 1 MG/5 ML VIAL. ONE (13:44)
[2020-01-21] MEDS ORDERED: KETOROLAC 30 MG/ML VIAL. ONE (13:44)
[2020-01-21] MEDS ORDERED: SEVOFLURANE 31 TO 60 MINUTES. IH ONE (13:46)
--- NOTE | 2020-01-21 13:54 | PDOC4 ---
Operative Note Operative Note Date: January 21, 2020 at 1349 Preoperative diagnosis acute appendicitis Postoperative diagnosis: Same Procedure: Laparoscopic appendectomy Surgeon: Timmy Specimen: Cultures and appendix Dictation: Patient is a 59-year-old female with acute appendicitis. Procedure laparoscopic appendectomy was explained to the patient in detail all risks and benefits also discussed including bleeding infection injury to intra-abdominal contents possible necessitating further open operations. Alternatives to this procedure also discussed with the patient he seemed to understand and gave v erbal and written consent to have the procedure performed. Patient was taken to the operating room placed in the supine position general anesthesia was initiated, once patient was asleep and intubated her abdomen was prepped and draped usual sterile fashion using ChloraPrep. The area just below the umbilicus injected with quarter percent Marcaine with epinephrine incision was made 11 blade scalpel and Veress needle was placed within the abdomen creating pneumoperitoneum once this is complete a 12 mm port was placed and a 5 mm camera was placed within the abdomen which was inspected which showed some free fluid purulent in the pelvis as well as an inflamed appendix. 5 mm port was placed low in the midline pelvis one in the right midabdomen. The appendix was grasped retracted towards the anterior abdominal wall window was propagated the mesoappendix with a [place] dissector and the Endo SENG stapler was used to staple and transect the base of the appendix a second load was used to staple and transect the mesoappendix appendix then placed Endo Catch bag and removed from the umbilicus. Right lower quadrant pelvis were irrigated and suctioned dry hemostased and be appropriate and the pneumoperitoneum was reduced all ports were removed fascial defect at the umbilicus closed with a [id number] 0 Vicryl suture and skin was approximated all port sites for subcuticular Monocryl Mastisol Steri-Strips and island dressings were applied. Patient was awakened and extubated in the operating room taken to recovery in stable condition all sponge instrument needle counts listed as correct estimated blood loss 20 mL. ANDREW POTTS MD Jan 21, 2020 13:54
[2020-01-21] MEDS ORDERED: oxyCODONE/APAP 5/325 1 TAB TABLET PO PRN ×2 (14:00)
--- NOTE | 2020-01-21 14:23 | PDOC1 ---
History and Physical Date of Admission Date of Admission 01/21/2020 Identification/Chief Complaint Chief Complaint Becky smith Source Source: Chart review, Patient History of Present Illness History of Present Illness Patient is a 59-year-old female with past medical history of hypertension who started complaining of abdominal discomfort approximately 2 days prior to her admission. She complained of a sharp discomfort over the entire abdomen that at some point she rated a 10 out of 10 intensity. The patient's pain resolved spontaneously as it came about and she did not have any dietary transgressions no recent sick contacts no travels outside this area were reported. Patient had a recurrence of her discomfort this morning in the lower abdomen mostly in the periumbilical area. The patient denied any fever chills overnight she denies having a bowel movement for couple days now due to the discomfort and worsening of the pain when she is straining. She does not have diarrhea she has had sev eral episodes of gastric content emesis no hematemesis no hematochezia no melena has been reported. She was found to have leukocytosis and appendicitis signs on CAT scan reason why we were asked to admit the patient for surgical evaluation. The time of my visit the patient is much improved after the initial intervention in the emergency department and the plan of care was explained to her and her who is sitting at bedside. All of their concerns were addressed to the best of my abilities Past Medical History Cardiovascular: HTN Pulmonary: No pertinent hx GI: No pertinent hx Heme/Onc: No pertinent hx Hepatobiliary: No pertinent hx Psych: No pertinent hx Rheumatologic: No pertinent hx Infectious disease: No pertinent hx ENT: No pertinent hx Renal/: No pertinent hx Endocrine: No pertinent hx Dermatology: No pertinent hx Past Surgical History Past Surgical History: No pertinent history Family History Family History: No Significant Social History Smoke: No ALCOHOL: none Drugs: None Current Problem List Problem List Problems Medical Problems: (1) Acute abdominal pain Status: Acute (2) Acute appendicitis Status: Acute (3) Generalized abdominal pain affecting Status: Acute Current Medications Current Medications Current Medications Medications (Trade) Dose Ordered Sig/Juan Start Time Stop Time Status Last Admin Dose Admin Acetaminophen (Tylenol Supp) 650 mg PRN Q4HRS PRN 01/21/20 10:00 Acetaminophen (Tylenol) 650 mg PRN Q4HRS PRN 01/21/20 10:00 Albuterol Sulfate (Ventolin Neb Soln) 2.5 mg Q6HRS 01/21/20 12:00 01/21/20 11:11 2.5 MG Budesonide (Pulmicort) 0.5 mg RTBID 01/21/20 20:00 Bupivacaine HCl/ Epinephrine Bitart (Sensorcaine-Epi 0.25%-1:[id number] Mpf) 30 ml STK-MED ONCE 01/21/20 12:32 01/21/20 12:33 DC 01/21/20 13:29 15 ML Dexamethasone Sodium Phosphate (Decadron) 4 mg STK-MED ONCE 01/21/20 13:22 01/21/20 13:22 DC Dicyclomine HCl (Bentyl) 20 mg 1X ONCE 01/21/20 07:15 01/21/20 07:17 DC 01/21/20 07:45 20 MG Diphenhydramine HCl (Benadryl) 25 mg PRN Q4HRS PRN 01/21/20 10:00 Docusate Sodium (Colace) 100 mg PRN BID PRN 01/21/20 10:00 Fentanyl Citrate (Fentanyl 2ml Vial) 100 mcg STK-MED ONCE 01/21/20 13:43 01/21/20 13:43 DC Glycopyrrolate (Robinul) 1 mg STK-MED ONCE 01/21/20 13:44 01/21/20 13:45 DC Guaifenesin (Robitussin) 200 mg PRN Q4HRS PRN 01/21/20 10:00 Hydromorphone HCl (Dilaudid) 0.5 mg PRN Q10MIN PRN 01/21/20 12:45 01/21/20 20:00 Info (CONTRAST GIVEN -- Rx MONITORING) 1 each PRN DAILY PRN 01/21/20 07:45 01/23/20 07:44 Iohexol (Omnipaque 300 Mg/ml) 75 ml 1X ONCE 01/21/20 07:45 01/21/20 07:46 DC 01/21/20 07:45 60 ML Ketorolac Tromethamine (Toradol 15mg Vial) 15 mg Q6HRS 01/21/20 18:00 01/22/20 17:59 Ketorolac Tromethamine (Toradol 30mg Vial) 30 mg STK-MED ONCE 01/21/20 13:44 01/21/20 13:45 DC Lidocaine HCl (Lidocaine Pf 2% Vial) 5 ml STK-MED ONCE 01/21/20 12:43 01/21/20 12:44 DC Lorazepam (Ativan) 0.5 mg PRN Q4HRS PRN 01/21/20 10:00 Losartan Potassium (Cozaar) 50 mg DAILY 01/21/20 11:00 Morphine Sulfate (Morphine Sulfate) 1 mg PRN Q10MIN PRN 01/21/20 12:45 01/21/20 20:00 Neostigmine Methylsulfate (Bloxiverz) 10 mg STK-MED ONCE 01/21/20 13:44 01/21/20 13:45 DC Non-Formulary Medication (Fluticasone/ Salmeterol (Advair 100-50 Diskus)) 1 puff BID 01/21/20 21:00 UNV Ondansetron HCl (Zofran) 4 mg PRN Q4HRS PRN 01/21/20 10:00 Oxycodone/ Acetaminophen (Percocet 5/325) 2 tab PRN Q4HRS PRN 01/21/20 14:00 Piperacillin Sod/ Tazobactam Sod 3.375 gm/Sodium Chloride 50 ml @ 100 mls/hr Q6HRS 01/21/20 17:00 Prochlorperazine Edisylate (Compazine) 5 mg PACU PRN PRN 01/21/20 12:45 01/21/20 20:00 Propofol (Diprivan) 200 mg STK-MED ONCE 01/21/20 12:43 01/21/20 12:43 DC Ringer's Solution 1,000 ml @ 30 mls/hr Q24H 01/21/20 12:39 01/22/20 00:38 01/21/20 11:30 30 MLS/HR Rocuronium [place] (Zemuron) 50 mg STK-MED ONCE 01/21/20 12:44 01/21/20 12:44 DC Sevoflurane (Ultane) 30 ml STK-MED ONCE 01/21/20 13:46 01/21/20 13:46 DC Sodium Chloride 1,000 ml @ 100 mls/hr Q10H 01/21/20 09:53 01/21/20 11:06 100 MLS/HR Spironolactone (Aldactone) 25 mg DAILY 01/21/20 11:00 Succinylcholine Chloride (Anectine) 200 mg STK-MED ONCE 01/21/20 12:44 01/21/20 12:44 DC Zolpidem Tartrate (Ambien) 5 mg PRN QHS PRN 01/21/20 10:00 Allergies Allergies Allergies Coded Allergies Type Severity Reaction Last Updated Verified lisinopril Allergy Severe Swelling 01/21/20 Yes ROS Review of System CONSTITUTIONAL: No fever or chills EYES: No recent changes SKIN: No rash or itching CARDIOVASCULAR: No chest pain, syncope, palpitations, or edema RESPIRATORY: No SOB or cough GASTROINTESTINAL: No nausea, vomiting or abdominal pain NEUROLOGICAL: No headaches or weakness ENDOCRINE: No cold or heat intolerance GENITOURINARY: No urgency or frequency of urination MUSCULOSKELETAL: No back pain or joint pain LYMPHATICS: No enlarged lymph nodes PSYCHIATRIC: No anxiety or depression Physical Exam Physical Exam GEN.: No apparent distress. Alert and oriented. HEENT: Head is normocephalic, atraumatic NECK: Supple. LUNGS: Clear to auscultation. HEART: RRR, S1, S2 present. Peripheral pulses intact ABDOMEN: Soft, tender. No peritoneal signs positive bowel sounds. EXTREMITIES: Without any cyanosis. NEUROLOGIC: Normal speech, normal tone PSYCHIATRIC: Normal affect, normal mood. SKIN: No ulcerations Vitals Vitals Vital Signs Date Time Temp Pulse Resp B/P (MAP) Pulse Ox O2 Delivery O2 Flow Rate FiO2 01/21/20 14:00 Room Air 10 01/21/20 14:00 100.4 95 18 132/56 100 100.4 Labs Labs Laboratory Tests Test 01/21/20 07:07 01/21/20 07:25 01/21/20 07:57 01/21/20 10:12 Urine Collection Type Unknown Urine Color Yellow Urine Clarity Clear Urine pH 7.0 (<5.0-8.0) Urine Specific [place] 1.020 (1.000-1.030) Urine Protein 30 mg/dL (NEG-TRACE) Urine Glucose (UA) Negative mg/dL (NEG) Urine Ketones (Stick) 15 mg/dL (NEG) Urine Blood Negative (NEG) Urine Nitrite Negative (NEG) Urine Bilirubin Small (NEG) Urine Urobilinogen Dipstick 1.0 mg/dL (0.2 mg/dL) Urine Leukocyte Esterase Moderate (NEG) Urine RBC 0 /HPF (0-2) Urine WBC 5-10 /HPF (0-4) Urine Squamous Epithelial Cells Occ /LPF Urine Amorphous Sediment Present /HPF Urine Bacteria Few /HPF (0-FEW) Urine Hyaline Casts Occasional /HPF Urine Mucus Marked /LPF White Blood Count 19.7 x10^3/uL (4.0-11.0) Red Blood Count 4.64 x10^6/uL (3.50-5.40) Hemoglobin 12.8 g/dL (12.0-15.5) Hematocrit 38.3 % (36.0-47.0) Mean Corpuscular Volume 83 fL (79-100) Mean Corpuscular Hemoglobin 28 pg (25-35) Mean Corpuscular Hemoglobin Concent 34 g/dL (31-37) Red Cell Distribution Width 13.6 % (11.5-14.5) Platelet Count 281 x10^3/uL (140-400) Neutrophils (%) (Auto) 90 % (31-73) Lymphocytes (%) (Auto) 7 % (24-48) Monocytes (%) (Auto) 2 % (0-9) Eosinophils (%) (Auto) 0 % (0-3) Basophils (%) (Auto) 1 % (0-3) Neutrophils # (Auto) 17.7 x10^3/uL (1.8-7.7) Lymphocytes # (Auto) 1.4 x10^3/uL (1.0-4.8) Monocytes # (Auto) 0.5 x10^3/uL (0.0-1.1) Eosinophils # (Auto) 0.0 x10^3/uL (0.0-0.7) Basophils # (Auto) 0.1 x10^3/uL (0.0-0.2) Segmented Neutrophils % 94 % (35-66) Lymphocytes % 4 % (24-48) Monocytes % 2 % (0-10) Platelet Estimate Adequate (ADEQUATE) Sodium Level 130 mmol/L (136-145) Potassium Level 4.3 mmol/L (3.5-5.1) Chloride Level 98 mmol/L (98-107) Carbon Dioxide Level 24 mmol/L (21-32) Anion Gap 8 (6-14) Blood Urea Nitrogen 25 mg/dL (7-20) Creatinine 1.4 mg/dL (0.6-1.0) Estimated GFR (Cockcroft-Gault) 46.7 BUN/Creatinine Ratio 18 (6-20) Glucose Level 120 mg/dL (70-99) Calcium Level 9.3 mg/dL (8.5-10.1) Total Bilirubin 0.5 mg/dL (0.2-1.0) Aspartate Amino Transf (AST/SGOT) 12 U/L (15-37) Alanine Aminotransferase (ALT/SGPT) 21 U/L (14-59) Alkaline Phosphatase 82 U/L (46-116) Total Protein 7.6 g/dL (6.4-8.2) Albumin 3.4 g/dL (3.4-5.0) Albumin/Globulin Ratio 0.8 (1.0-1.7) Lipase 66 U/L (73-393) SARS-CoV-2 Antigen (Rapid) Negative (NEGATIVE) Laboratory Tests Test 01/21/20 07:07 01/21/20 07:25 01/21/20 07:57 01/21/20 10:12 Urine Collection Type Unknown Urine Color Yellow Urine Clarity Clear Urine pH 7.0 (<5.0-8.0) Urine Specific [place] 1.020 (1.000-1.030) Urine Protein 30 mg/dL (NEG-TRACE) Urine Glucose (UA) Negative mg/dL (NEG) Urine Ketones (Stick) 15 mg/dL (NEG) Urine Blood Negative (NEG) Urine Nitrite Negative (NEG) Urine Bilirubin Small (NEG) Urine Urobilinogen Dipstick 1.0 mg/dL (0.2 mg/dL) Urine Leukocyte Esterase Moderate (NEG) Urine RBC 0 /HPF (0-2) Urine WBC 5-10 /HPF (0-4) Urine Squamous Epithelial Cells Occ /LPF Urine Amorphous Sediment Present /HPF Urine Bacteria Few /HPF (0-FEW) Urine Hyaline Casts Occasional /HPF Urine Mucus Marked /LPF White Blood Count 19.7 x10^3/uL (4.0-11.0) Red Blood Count 4.64 x10^6/uL (3.50-5.40) Hemoglobin 12.8 g/dL (12.0-15.5) Hematocrit 38.3 % (36.0-47.0) Mean Corpuscular Volume 83 fL (79-100) Mean Corpuscular Hemoglobin 28 pg (25-35) Mean Corpuscular Hemoglobin Concent 34 g/dL (31-37) Red Cell Distribution Width 13.6 % (11.5-14.5) Platelet Count 281 x10^3/uL (140-400) Neutrophils (%) (Auto) 90 % (31-73) Lymphocytes (%) (Auto) 7 % (24-48) Monocytes (%) (Auto) 2 % (0-9) Eosinophils (%) (Auto) 0 % (0-3) Basophils (%) (Auto) 1 % (0-3) Neutrophils # (Auto) 17.7 x10^3/uL (1.8-7.7) Lymphocytes # (Auto) 1.4 x10^3/uL (1.0-4.8) Monocytes # (Auto) 0.5 x10^3/uL (0.0-1.1) Eosinophils # (Auto) 0.0 x10^3/uL (0.0-0.7) Basophils # (Auto) 0.1 x10^3/uL (0.0-0.2) Segmented Neutrophils % 94 % (35-66) Lymphocytes % 4 % (24-48) Monocytes % 2 % (0-10) Platelet Estimate Adequate (ADEQUATE) Sodium Level 130 mmol/L (136-145) Potassium Level 4.3 mmol/L (3.5-5.1) Chloride Level 98 mmol/L (98-107) Carbon Dioxide Level 24 mmol/L (21-32) Anion Gap 8 (6-14) Blood Urea Nitrogen 25 mg/dL (7-20) Creatinine 1.4 mg/dL (0.6-1.0) Estimated GFR (Cockcroft-Gault) 46.7 BUN/Creatinine Ratio 18 (6-20) Glucose Level 120 mg/dL (70-99) Calcium Level 9.3 mg/dL (8.5-10.1) Total Bilirubin 0.5 mg/dL (0.2-1.0) Aspartate Amino Transf (AST/SGOT) 12 U/L (15-37) Alanine Aminotransferase (ALT/SGPT) 21 U/L (14-59) Alkaline Phosphatase 82 U/L (46-116) Total Protein 7.6 g/dL (6.4-8.2) Albumin 3.4 g/dL (3.4-5.0) Albumin/Globulin Ratio 0.8 (1.0-1.7) Lipase 66 U/L (73-393) SARS-CoV-2 Antigen (Rapid) Negative (NEGATIVE) VTE Prophylaxis Ordered VTE Prophylaxis Devices: Yes VTE Pharmacological Prophylaxi: No Assessment/Plan Assessment/Plan Acute appendicitis Leukocytosis secondary to the above Hyponatremia with no clinical significance most likely secondary to 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
[2020-01-21] MEDS: KETOROLAC 15 MG/ML VIAL. IVP SCH ×2 (16:32→23:59)
[2020-01-21] MEDS: PIPERACILLIN/TAZOBACTAM 3.375 GM in IV NORMAL SALINE 50ML 50 ML IV SCH ×2 (16:34→23:59)
[2020-01-21] MEDS: BUDESONIDE 0.5 MG/2 ML NEBU. NEB SCH (19:55)
[2020-01-21] MEDS ORDERED: NON FORMULARY ITEM (Fluticasone/Salmeterol (Advair 100-50 Diskus) 1 PUFF) IH SCH (21:00)
[2020-01-22] MEDS: IV NORMAL SALINE 1000ML BAG 1,000 ML IV SCH ×2 (00:02→10:50)
[2020-01-22 03:00] VITALS: BP 84/49
[2020-01-22] MEDS: KETOROLAC 15 MG/ML VIAL. IVP SCH ×2 (06:00→12:51)
[2020-01-22] MEDS: ALBUTEROL SULFATE 2.5 MG/3 ML NEBU. NEB SCH ×3 (06:00→12:09)
[2020-01-22] MEDS: PIPERACILLIN/TAZOBACTAM 3.375 GM in IV NORMAL SALINE 50ML 50 ML IV SCH ×2 (06:15→12:52)
[2020-01-22 07:00] VITALS: BP 93/52
[2020-01-22] MEDS: BUDESONIDE 0.5 MG/2 ML NEBU. NEB SCH (07:36)
[2020-01-22] MEDS: LOSARTAN POTASSIUM 50 MG TABLET. PO SCH (09:00)
[2020-01-22] MEDS: SPIRONOLACTONE 25 MG TABLET PO SCH (09:00)
[2020-01-22 11:00] VITALS: BP 85/48
--- NOTE | 2020-01-22 11:54 | NUR ---
SW following. Discussed with RN, pt from home, surgery 01/21/2020. RN advised no SW needs, anticipates possible discharge home with self care today, after surgeon rounds.
--- NOTE | 2020-01-22 12:16 | PDOC ---
SURGICAL PROGRESS NOTE Subjective Patient doing quite well tolerating diet Vital Signs Vital Signs Date Time Temp Pulse Resp B/P (MAP) Pulse Ox O2 Delivery O2 Flow Rate FiO2 01/22/20 12:10 100 Room Air 01/22/20 11:00 98.7 60 18 85/48 (60) 98.7 01/21/20 14:15 10 I&O Intake and Output 01/22/20 07:00 Intake Total 4900 ml Output Total 310 ml Balance 4590 ml Intake Oral 1450 ml IV Total 3450 ml Output Urine Total 300 ml Estimated Blood Loss 10 ml # Voids 3 PATIENT HAS A MORRISSEY: No General: Alert, Oriented X3, Cooperative, mild distress Abdomen: Normal bowel sounds, Soft, Other (Mild incisional tenderness wounds clean dry and intact) Labs Laboratory Tests Test 01/21/20 07:07 01/21/20 07:25 01/21/20 07:57 01/21/20 10:12 Urine Collection Type Unknown Urine Color Yellow Urine Clarity Clear Urine pH 7.0 (<5.0-8.0) Urine Specific [place] 1.020 (1.000-1.030) Urine Protein 30 mg/dL (NEG-TRACE) Urine Glucose (UA) Negative mg/dL (NEG) Urine Ketones (Stick) 15 mg/dL (NEG) Urine Blood Negative (NEG) Urine Nitrite Negative (NEG) Urine Bilirubin Small (NEG) Urine Urobilinogen Dipstick 1.0 mg/dL (0.2 mg/dL) Urine Leukocyte Esterase Moderate (NEG) Urine RBC 0 /HPF (0-2) Urine WBC 5-10 /HPF (0-4) Urine Squamous Epithelial Cells Occ /LPF Urine Amorphous Sediment Present /HPF Urine Bacteria Few /HPF (0-FEW) Urine Hyaline Casts Occasional /HPF Urine Mucus Marked /LPF White Blood Count 19.7 x10^3/uL (4.0-11.0) Red Blood Count 4.64 x10^6/uL (3.50-5.40) Hemoglobin 12.8 g/dL (12.0-15.5) Hematocrit 38.3 % (36.0-47.0) Mean Corpuscular Volume 83 fL (79-100) Mean Corpuscular Hemoglobin 28 pg (25-35) Mean Corpuscular Hemoglobin Concent 34 g/dL (31-37) Red Cell Distribution Width 13.6 % (11.5-14.5) Platelet Count 281 x10^3/uL (140-400) Neutrophils (%) (Auto) 90 % (31-73) Lymphocytes (%) (Auto) 7 % (24-48) Monocytes (%) (Auto) 2 % (0-9) Eosinophils (%) (Auto) 0 % (0-3) Basophils (%) (Auto) 1 % (0-3) Neutrophils # (Auto) 17.7 x10^3/uL (1.8-7.7) Lymphocytes # (Auto) 1.4 x10^3/uL (1.0-4.8) Monocytes # (Auto) 0.5 x10^3/uL (0.0-1.1) Eosinophils # (Auto) 0.0 x10^3/uL (0.0-0.7) Basophils # (Auto) 0.1 x10^3/uL (0.0-0.2) Segmented Neutrophils % 94 % (35-66) Lymphocytes % 4 % (24-48) Monocytes % 2 % (0-10) Platelet Estimate Adequate (ADEQUATE) Sodium Level 130 mmol/L (136-145) Potassium Level 4.3 mmol/L (3.5-5.1) Chloride Level 98 mmol/L (98-107) Carbon Dioxide Level 24 mmol/L (21-32) Anion Gap 8 (6-14) Blood Urea Nitrogen 25 mg/dL (7-20) Creatinine 1.4 mg/dL (0.6-1.0) Estimated GFR (Cockcroft-Gault) 46.7 BUN/Creatinine Ratio 18 (6-20) Glucose Level 120 mg/dL (70-99) Calcium Level 9.3 mg/dL (8.5-10.1) Total Bilirubin 0.5 mg/dL (0.2-1.0) Aspartate Amino Transf (AST/SGOT) 12 U/L (15-37) Alanine Aminotransferase (ALT/SGPT) 21 U/L (14-59) Alkaline Phosphatase 82 U/L (46-116) Total Protein 7.6 g/dL (6.4-8.2) Albumin 3.4 g/dL (3.4-5.0) Albumin/Globulin Ratio 0.8 (1.0-1.7) Lipase 66 U/L (73-393) SARS-CoV-2 Antigen (Rapid) Negative (NEGATIVE) Test 01/21/20 16:00 Lactic Acid Level 0.9 mmol/L (0.4-2.0) Laboratory Tests Test 01/21/20 16:00 Lactic Acid Level 0.9 mmol/L (0.4-2.0) Problem List Problems Medical Problems: (1) Acute abdominal pain Status: Acute (2) Acute appendicitis Status: Acute (3) Generalized abdominal pain affecting Status: Acute Assessment/Plan Status post laparoscopic appendectomy Awaiting CBC results, potentially could go home this afternoon Justicifation of Admission Dx: Justifications for Admission: Justification of Admission Dx: Yes ANDREW POTTS MD Jan 22, 2020 12:16
[2020-01-22] MEDS ORDERED: OXYC-325 PO (12:26)
[2020-01-22] MEDS ORDERED: DOCU-109 PO (12:27)
[2020-01-22] MEDS ORDERED: POLYETHYLENE GLYCOL 3350 17 GM PACKET. PO ONE (12:30)
[2020-01-22 12:33] LABS: HEMATOCRIT 27.8 % (36.0-47.0); HEMOGLOBIN 9.5 g/dL (12.0-15.5); RED BLOOD COUNT 3.37 x10^6/uL (3.50-5.40); RED CELL DISTRIBUTION WIDTH 14.1 % (11.5-14.5); WHITE BLOOD COUNT 14.7 x10^3/uL (4.0-11.0)
--- NOTE | 2020-01-22 13:07 | PDOC3 ---
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 Chronic kidney disease stage III a Hyperglycemia most likely secondary to acute inflammatory process Essential hypertension currently uncontrolled secondary to pain most likely Problems Medical Problems: (1) Acute abdominal pain Status: Acute (2) Acute appendicitis Status: Acute (3) Generalized abdominal pain affecting Status: Acute Brief Hospital Course Allergies Allergies Coded Allergies Type Severity Reaction Last Updated Verified lisinopril Allergy Severe Swelling 01/21/20 Yes Vital Signs Vital Signs Date Time Temp Pulse Resp B/P (MAP) Pulse Ox O2 Delivery O2 Flow Rate FiO2 01/22/20 12:10 100 Room Air 01/22/20 11:00 98.7 60 18 85/48 (60) 98.7 01/21/20 14:15 10 Lab Results Laboratory Tests Test 01/21/20 07:07 01/21/20 07:25 01/21/20 07:57 01/21/20 10:12 Urine Collection Type Unknown Urine Color Yellow Urine Clarity Clear Urine pH 7.0 (<5.0-8.0) Urine Specific [place] 1.020 (1.000-1.030) Urine Protein 30 mg/dL (NEG-TRACE) Urine Glucose (UA) Negative mg/dL (NEG) Urine Ketones (Stick) 15 mg/dL (NEG) Urine Blood Negative (NEG) Urine Nitrite Negative (NEG) Urine Bilirubin Small (NEG) Urine Urobilinogen Dipstick 1.0 mg/dL (0.2 mg/dL) Urine Leukocyte Esterase Moderate (NEG) Urine RBC 0 /HPF (0-2) Urine WBC 5-10 /HPF (0-4) Urine Squamous Epithelial Cells Occ /LPF Urine Amorphous Sediment Present /HPF Urine Bacteria Few /HPF (0-FEW) Urine Hyaline Casts Occasional /HPF Urine Mucus Marked /LPF White Blood Count 19.7 x10^3/uL (4.0-11.0) Red Blood Count 4.64 x10^6/uL (3.50-5.40) Hemoglobin 12.8 g/dL (12.0-15.5) Hematocrit 38.3 % (36.0-47.0) Mean Corpuscular Volume 83 fL (79-100) Mean Corpuscular Hemoglobin 28 pg (25-35) Mean Corpuscular Hemoglobin Concent 34 g/dL (31-37) Red Cell Distribution Width 13.6 % (11.5-14.5) Platelet Count 281 x10^3/uL (140-400) Neutrophils (%) (Auto) 90 % (31-73) Lymphocytes (%) (Auto) 7 % (24-48) Monocytes (%) (Auto) 2 % (0-9) Eosinophils (%) (Auto) 0 % (0-3) Basophils (%) (Auto) 1 % (0-3) Neutrophils # (Auto) 17.7 x10^3/uL (1.8-7.7) Lymphocytes # (Auto) 1.4 x10^3/uL (1.0-4.8) Monocytes # (Auto) 0.5 x10^3/uL (0.0-1.1) Eosinophils # (Auto) 0.0 x10^3/uL (0.0-0.7) Basophils # (Auto) 0.1 x10^3/uL (0.0-0.2) Segmented Neutrophils % 94 % (35-66) Lymphocytes % 4 % (24-48) Monocytes % 2 % (0-10) Platelet Estimate Adequate (ADEQUATE) Sodium Level 130 mmol/L (136-145) Potassium Level 4.3 mmol/L (3.5-5.1) Chloride Level 98 mmol/L (98-107) Carbon Dioxide Level 24 mmol/L (21-32) Anion Gap 8 (6-14) Blood Urea Nitrogen 25 mg/dL (7-20) Creatinine 1.4 mg/dL (0.6-1.0) Estimated GFR (Cockcroft-Gault) 46.7 BUN/Creatinine Ratio 18 (6-20) Glucose Level 120 mg/dL (70-99) Calcium Level 9.3 mg/dL (8.5-10.1) Total Bilirubin 0.5 mg/dL (0.2-1.0) Aspartate Amino Transf (AST/SGOT) 12 U/L (15-37) Alanine Aminotransferase (ALT/SGPT) 21 U/L (14-59) Alkaline Phosphatase 82 U/L (46-116) Total Protein 7.6 g/dL (6.4-8.2) Albumin 3.4 g/dL (3.4-5.0) Albumin/Globulin Ratio 0.8 (1.0-1.7) Lipase 66 U/L (73-393) SARS-CoV-2 Antigen (Rapid) Negative (NEGATIVE) Test 01/21/20 16:00 01/22/20 12:25 Lactic Acid Level 0.9 mmol/L (0.4-2.0) White Blood Count 14.7 x10^3/uL (4.0-11.0) Red Blood Count 3.37 x10^6/uL (3.50-5.40) Hemoglobin 9.5 g/dL (12.0-15.5) Hematocrit 27.8 % (36.0-47.0) Mean Corpuscular Volume 83 fL (79-100) Mean Corpuscular Hemoglobin 28 pg (25-35) Mean Corpuscular Hemoglobin Concent 34 g/dL (31-37) Red Cell Distribution Width 14.1 % (11.5-14.5) Platelet Count 190 x10^3/uL (140-400) Laboratory Tests Test 01/21/20 16:00 01/22/20 12:25 Lactic Acid Level 0.9 mmol/L (0.4-2.0) White Blood Count 14.7 x10^3/uL (4.0-11.0) Red Blood Count 3.37 x10^6/uL (3.50-5.40) Hemoglobin 9.5 g/dL (12.0-15.5) Hematocrit 27.8 % (36.0-47.0) Mean Corpuscular Volume 83 fL (79-100) Mean Corpuscular Hemoglobin 28 pg (25-35) Mean Corpuscular Hemoglobin Concent 34 g/dL (31-37) Red Cell Distribution Width 14.1 % (11.5-14.5) Platelet Count 190 x10^3/uL (140-400) Brief Hospital Course Ms. Burt is a 59 old female, admit with acute rlq abd pain, taken to OR by Dr. Warner, acute appy, pt juliet, improved dc home some constipation, meds given x2, DVT prophylaxis with SCDs Discharge Information Condition at Discharge: Improved Follow Up: Weeks Disposition/Orders: D/C to Home Scheduled Docusate Sodium (Colace) 100 Mg Capsule, 100 MG PO BID for constipation, #60 Prescribed by: LYNNETTE FRANCO on 01/22/20 1227 Fluticasone/Salmeterol (Advair 100-50 Diskus) 1 Each Disk.w.dev, 1 PUFF IH BID, #1 Ref 5 (Reported) Entered as Reported by: CECIL NAPIER on 01/14/20 1500 Last Action: Converted on 01/21/20957 by TOYIN BANG MD Losartan Potassium (Losartan Potassium) 50 Mg Tablet, 50 MG PO DAILY, (Reported) Entered as Reported by: AMBER ESPARZA on 07/17/13 0851 Last Action: Continued on 01/21/20957 by TOYIN BANG MD Spironolactone (Spironolactone) 25 Mg Tablet, 1 TAB PO DAILY, #90 Ref 1 (Reported) Entered as Reported by: CECIL NAPIER on 01/14/20 1500 Last Action: Continued on 01/21/20957 by TOYIN BANG MD Scheduled PRN Albuterol Sulfate (Proair Hfa Inhaler) 8.5 Gm Hfa.aer.ad, 2 PUFF IH PRN Q4-6HRS PRN for wheezing for 21 Days, #1 Ref 0 (Reported) Entered as Reported by: CECIL NAPIER on 01/14/20 1459 Patient Instructions Patient Instructions face to face questinos answered Justicifation of Admission Dx: Justifications for Admission: Justification of Admission Dx: Yes LYNNETTE FRANCO MD Jan 22, 2020 13:07
--- NOTE | 2020-01-22 15:11 | NUR ---
Discharged to home per w/c, instructions given along with Going Home After Surgery booklet, see instruction sheet for details.
--- NOTE | 2020-01-22 17:07 | PATHOLOGY ---
[facility] Accession Number: [id number] . 01 Material submitted: . appendix - APPENDIX . 01 Clinical history: . Acute appendicitis . 02 Diagnosis: Appendix, laparoscopic appendectomy: - Acute appendicitis with focal serosal exudate. . ([facility]:mm; 01/22/2020) [facility] 01/22/2020 1545 Local . 02 Comment: There is no evidence of rupture. There is no evidence of malignancy. . ([facility]:mm; 01/22/2020) . 02 Electronically signed: . Sterling Duke MD, Pathologist NPI- [id number] . 01 Gross description: . The specimen is received in formalin, labeled "Johana Burt, appendix". Received is a vermiform appendix measuring 3.9 cm in length by up to 1.1 cm in diameter with a moderate amount of attached mesoappendix. The serosal surface is pale pink to pink-kowalski and shaggy in appearance. The surgical margin is closed with a line of geoff. The geoff are removed and the new margin is inked black. Sectioning reveals a patent to possibly occluded lumen. The appendix is submitted entirely in cassettes A1 and A2, with the proximal margin and bisected tip submitted in cassette A1. ([facility]; 01/21/2020) QA/QA 01/21/2020 1747 Local . 02 Pathologist provided ICD-10: K35.80 . 02 CPT . 587099 Specimen Comment: A courtesy copy of this report has been sent to [phone], [phone] Specimen Comment: [phone], Specimen Comment: Report sent to ,DR BANG / DR KELLEY Performed at: [address] [place], [place] [address] [facility] [address], [place], [place] [id number] MD Quinten Simons MD Phone: [phone] Performed at: [address] [id number] MD Sterling Duke MD Phone: [phone]
== END 2020-01-22 15:15 | disposition home or self-care (01) ==
LOC: ER 06:52 → 4 NORTH 09:43
PROVIDERS: ADMIT Internal Medicine; ATTEND Internal Medicine
DX: K35.80 Unspecified acute appendicitis (principal); I12.9 Hypertensive chronic kidney disease with stage 1 through stage 4 chronic kidney disease, or unspecified chronic kidney disease; N18.3 Chronic kidney disease, stage 3 (moderate); K59.00 Constipation, unspecified; D25.9 Leiomyoma of uterus, unspecified
CPT/HCPCS: 36415; 44970; 74177; 80053; 81001; 83605; 83690; 85007; 85025; 85027; 87040; 87071; 87075; 87086; 87426; 88304; 94640; 94760; 96361; 96365; 96366; 96372; 96375; 96376; 99284; A7015; G0378; J0330; J0500; J1100; J1885; J2270; J2405; J2543; J2704; J2710; J3010; J3490; J7030; J7120; Q9967; 87077; 87186; G0379; J7613; J7626

== ENCOUNTER → 2021-07-05 | Outpatient (CLI) | payer OTHER ==
[~2021-07-05] MED LIST changes: +DOCU-109 PO; +OXYC-325 PO
[2021-07-05 10:50] LABS: ALBUMIN 3.7 g/dL (3.4-5.0); CALCIUM 9.4 mg/dL (8.5-10.1); GFR 68.7; POTASSIUM 4.9 mmol/L (3.5-5.1)
[2021-07-05 10:54] LABS: BASO % 1 % (0-3); EOS # 0.3 x10^3/uL (0.0-0.7); EOS % 5 % (0-3); HEMATOCRIT 40.2 % (36.0-47.0); HEMOGLOBIN 13.1 g/dL (12.0-15.5); LYMPH # 2.1 x10^3/uL (1.0-4.8); LYMPH % 32 % (24-48); MEAN CORPUSCULAR HEMOGLOBIN 26 pg (25-35); MEAN CORPUSCULAR HGB CONC 33 g/dL (31-37); MEAN CORPUSCULAR VOLUME 79 fL (79-100); MONO # 0.4 x10^3/uL (0.0-1.1); MONO % 7 % (0-9); NEUT # 3.5 x10^3/uL (1.8-7.7); NEUT % 55 % (31-73); PLATELET COUNT 218 x10^3/uL (140-400); RED CELL DISTRIBUTION WIDTH 14.3 % (11.5-14.5); WHITE BLOOD COUNT 6.4 x10^3/uL (4.0-11.0)
[2021-07-05 11:06] LABS: PROTHROMBIN TIME PATIENT 12.9 SEC (11.7-14.0)
--- NOTE | 2021-07-05 12:45 | EKG ---
[facility] [address] [place] [address] Test Date: 2021-07-05 Test Time: 12:20:40 Pat Name: KULDEEP VEGA Department: Room: Gender: F Regional Business Manager: RHONA : 1960 Requested By: RICHIE WANG Order Number: [id number] Reading MD: Marciano Toledo Measurements Intervals Pillow Rate: 73 P: 30 ME: 176 QRS: 19 QRSD: 86 T: 60 QT: 394 QTc: 438 Interpretive Statements SINUS RHYTHM Electronically Signed On 07-08-2021 8:10:16 UI APPLICATION DEVELOPER by Marciano Toledo
--- NOTE | 2021-07-05 13:02 | RAD ---
EXAM: Chest, 2 views. HISTORY: Preoperative evaluation. COMPARISON: None. FINDINGS: 2 views of the chest are obtained. There is no infiltrate, pleural effusion or pneumothorax . The heart is normal in size. IMPRESSION: No acute pulmonary finding. Electronically signed by: Alexandria Isbell MD (07/05/2021 12:59 PM) [id number]
[2021-07-06 00:07] LABS: HEMOGLOBIN A1C 5.8 % (4.8-5.6)
== END ==
LOC: SURGPAT 11:56
PROVIDERS: ATTEND Orthopaedic Surgery Sports Medicine
DX: Z01.812 Encounter for preprocedural laboratory examination (principal); M16.11 Unilateral primary osteoarthritis, right hip
CPT/HCPCS: 36415; 71046; 80048; 82040; 82306; 83036; 85025; 85610; 85651; 85730; 87641; 93005